=== PATIENT | male | born 1990 | race Caucasian/White ===

== ENCOUNTER 2019-10-18 12:30 | Emergency (ER) | payer SELFPAY ==
[~2019-10-18] VITALS: Ht 185.4 cm; Wt 72.6 kg
[2019-10-18 13:12] VITALS: BP 154/101
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
== END 2019-10-18 13:54 | disposition home or self-care (01) ==
LOC: ER 12:30
DX: M54.6 Pain in thoracic spine (principal); Z88.8 Allergy status to other drugs, medicaments and biological substances
CPT/HCPCS: 99281